=== PATIENT | male | born 1940 | race American Indian/Alaskan Native ===

== ENCOUNTER 2017-03-05 09:00 | Outpatient (CLI) | payer MEDICARE ==
--- NOTE | 2017-03-05 09:28 | XRay Report ---
Left knee 3 views: History: Sob. Findings: Minimal n the medial lateral and patellofemoral compartment knee joint with mild arthritic changes. No fracture dislocation or soft tissue calcification. Tiny metallic clips/foreign body soft tissue posteriomedial distal diaphysis of the femur. Impression: Findings as detailed above.
== END 2017-03-05 09:01 | disposition home or self-care (01) ==
LOC: SPVIMAG 09:00
PROVIDERS: ATTEND Internal Medicine
DX: M71.562 Other bursitis, not elsewhere classified, left knee (principal)